=== PATIENT | female | born 1985 | race Caucasian/White ===

== ENCOUNTER 2016-08-17 08:50 | Emergency (ER) | payer MEDICAID ==
[~2016-08-17] VITALS: Ht 157.5 cm; Wt 82.6 kg
[2016-08-17 08:55] VITALS: BP 129/84
--- NOTE | 2016-08-17 08:59 | NUR ---
Patient ambulated to bed 7 after providing a urine specimen. CFA evaluating patient at bedside.
--- NOTE | 2016-08-17 09:04 | NUR ---
Dr. Jung evaluating patient at bedside.
[2016-08-17] MEDS ORDERED: ONDANSETRON 4 MG ODT PO ONE (09:05)
[2016-08-17] MEDS ORDERED: KETOROLAC 60 MG/2 ML VIAL IM ONE (09:05)
[2016-08-17] MEDS ORDERED: DIPHENOXYLATE /ATROPINE 2.5 MG TAB PO ONE (09:05)
[2016-08-17] MEDS ORDERED: DICYCLOMINE HCL LIQUID 10 MG/5 ML UDC PO ONE (09:05)
--- NOTE | 2016-08-17 09:06 | NUR ---
31/F c/o abdominal pain accopanied with nausea and diarrhea since yesterday. Pt states she had this pain months ago, saw PMD and was given rantindine, improved pain. Pt states she took some yesterday and noticed it was this month. No improvement of pain. Denies vomiting. Denies fever or chills. AOX4, ambulatory with steady gait. VSS. No distress noted.
--- NOTE | 2016-08-17 09:46 | NUR ---
Patient discharged with v/s stable. Written and verbal after care instructions given and explained. Patient alert, oriented and verbalized understanding of instructions. Ambulatory with steady gait. All questions addressed prior to discharge. ID band removed. Patient advised to follow up with PMD. Rx of DEBORA NO given. Patient educated on indication of medication including possible reaction and side effects. Opportunity to ask questions provided and answered.
== END 2016-08-17 09:46 | disposition home or self-care (01) ==
LOC: MED 08:50
DX: K52.9 Noninfective gastroenteritis and colitis, unspecified (principal)
CPT/HCPCS: 81002; 81025; 96372; 99283; J1885; S0119

== ENCOUNTER 2016-12-08 09:19 | Emergency (ER) | payer MEDICAID ==
[~2016-12-08] VITALS: Ht 157.5 cm; Wt 81.6 kg
[2016-12-08 09:49] VITALS: BP 125/77
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
--- NOTE | 2016-12-08 10:23 | NUR ---
Patient being evaluated by DR MILLER at bedside.
[2016-12-08] MEDS ORDERED: KETOROLAC 60 MG/2 ML VIAL IM ONE (10:30)
--- NOTE | 2016-12-08 10:30 | NUR ---
Patient appears to be resting comfortably in bed. Vital Signs within normal limits. Respirations even and unlabored.WILL CONTINUE TO MONITOR.
[2016-12-08 10:45] VITALS: BP 113/69
--- NOTE | 2016-12-08 10:45 | NUR ---
Patient discharged with v/s stable. Written and verbal after care instructions given and explained. Patient alert, oriented and verbalized understanding of instructions. Ambulatory with steady gait. All questions addressed prior to discharge. ID band removed. Patient advised to follow up with PMD. Rx of NORCO & MOTRIN given. Patient educated on indication of medication including possible reaction and side effects. Opportunity to ask questions provided and answered.
== END 2016-12-08 10:45 | disposition home or self-care (01) ==
LOC: MED 09:19
DX: R07.9 Chest pain, unspecified (principal); R10.13 Epigastric pain; V43.62XA Car passenger injured in collision with other type car in traffic accident, initial encounter; Y93.I9 Activity, other involving external motion; Y92.488 Other paved roadways as the place of occurrence of the external cause; Y99.8 Other external cause status
CPT/HCPCS: 96372; 99283; J1885